=== PATIENT | male | born 1945 | race Caucasian/White ===

== ENCOUNTER 2017-05-26 07:01 | Inpatient (IN) | payer OTHER, MEDICARE ==
[~2017-05-26] VITALS: Ht 167.6 cm; Wt 115.0 kg
[2017-05-26 07:20] LABS: BASOPHILS ABSOLUTE AUTO 0.06 K/mm3 (0.00-0.23); BASOPHILS PERCENT AUTO 1 % (0-2); EOSINOPHILS ABSOLUTE AUTO 0.44 K/mm3 (0.00-0.68); EOSINOPHILS PERCENT AUTO 5 % (0-6); Hematocrit 40.3 % (37.0-53.0); Hemoglobin 13.2 g/dL (13.5-17.5); IMMATURE GRAN ABSOLUTE AUTO 0.02 K/mm3 (0.00-0.10); IMMATURE GRAN PERCENT AUTO 0 % (0-1); LYMPHOCYTES ABSOLUTE AUTO 2.59 K/mm3 (0.84-5.20); LYMPHOCYTES PERCENT AUTO 32 % (21-46); MONOCYTES ABSOLUTE AUTO 0.57 K/mm3 (0.16-1.47); MONOCYTES PERCENT AUTO 7 % (4-13); Mean Corpuscular HGB 28.4 pg (26.0-34.0); Mean Corpuscular HGB Conc 32.8 g/dL (31.5-36.5); Mean Corpuscular Volume 87 fL (80-100); Mean Platelet Volume 10.2 fL (9.1-12.4); NEUTROPHILS ABSOLUTE AUTO 4.46 K/mm3 (1.96-9.15); NEUTROPHILS PERCENT AUTO 55 % (41-73); Platelet Count 279 K/mm3 (150-400); RDW Coefficient Variation 12.6 % (11.7-14.2); RDW Standard Deviation 39.8 fL (35.1-46.3); Red Blood Cell Count 4.65 M/mm3 (4.30-5.90); White Blood Cell Count 8.14 K/mm3 (4.00-11.30)
[2017-05-26 07:42] LABS: Alanine Aminotransfer (ALT/SGP 33 U/L (12-78); Albumin, Blood 3.4 g/dL (3.4-5.0); Albumin/Globulin Ratio 0.9 (0.8-1.8); Alk Phos 89 U/L (50-136); Anion Gap 6 mmol/L (6-16); Aspartate Aminotrans (AST/SGOT 19 U/L (12-37); Bilirubin, Total 0.2 mg/dL (0.1-1.0); Blood Urea Nitrogen 24 mg/dL (8-24); Bun/Creatinine Ratio 30.5 (12.0-20.0); CO2, Blood 28 mmol/L (21-32); Calcium, Blood 8.6 mg/dL (8.5-10.1); Chloride, Blood 105 mmol/L (98-108); Creatinine, Blood 0.79 mg/dL (0.60-1.20); Ethanol (Alcohol), Blood, Med <3 mg/dL; Globulin, Blood 3.9 g/dL (2.2-4.0); Glomerular Filtration Rate >60 (60-); Glucose, Blood 264 mg/dL (70-99); Potassium, Blood 4.5 mmol/L (3.5-5.5); Sodium, Blood 139 mmol/L (136-145); Total Protein, Blood 7.3 g/dL (6.4-8.2); Troponin I <0.015 ng/mL (0.000-0.040)
[2017-05-26 07:48] LABS: PCO2 Venous 46.2 mmHg (38-42); PO2 Venous 116 mmHg (38-42); pH Blood Venous 7.36 (7.34-7.37)
[2017-05-26 07:49] LABS: Base Excess Venous 0.8 mmol/L; Bicarbonate Venous 24.7 mmol/L (24.0-30.0)
[2017-05-26 07:50] LABS: Calcium, Ionized (POC) 1.18 mmol/L (1.10-1.46); Chloride (POC) 103 mmol/L (98-108); Creatinine (POC) 0.8 mg/dL (0.8-1.3); Glucose (ISTAT POC) 272 mg/dL (70-99); Hemoglobin (POC) 13.9 g/dL (13.5-17.5); Potassium (POC) 4.8 mmol/L (3.5-5.5); Sodium (POC) 140 mmol/L (135-148); Total CO2 (POC) 26 mmol/L (21-32)
[2017-05-26] MEDS ORDERED: ALBU90OI6 (07:59)
[2017-05-26] MEDS ORDERED: GABA300 PO (07:59)
[2017-05-26] MEDS ORDERED: HYDCHL12.5 PO (07:59)
[2017-05-26] MEDS ORDERED: LOSA50 PO (08:00)
[2017-05-26] MEDS ORDERED: Synthroid25 MCG PO (08:00)
[2017-05-26] MEDS ORDERED: SILD50TA PO (08:01)
[2017-05-26] MEDS ORDERED: ARTIFICIAL TEA3.5 GM BOTHEYES (13:49)
[2017-05-26] MEDS ORDERED: Cayenne450 MG PO (13:50)
== END 2017-05-27 19:30 | disposition short-term general hospital (02) | DRG 64 ==
LOC: ER 07:01 → PCU 09:53 → ERHOLD 09:53 → PCU 12:14 → MEDS 05-27 16:13
PROVIDERS: Emergency Medicine
DX: I63.9 Cerebral infarction, unspecified (principal); G93.41 Metabolic encephalopathy; E11.40 Type 2 diabetes mellitus with diabetic neuropathy, unspecified; E11.65 Type 2 diabetes mellitus with hyperglycemia; E78.5 Hyperlipidemia, unspecified; I10 Essential (primary) hypertension; I25.2 Old myocardial infarction; Z91.14 Patient's other noncompliance with medication regimen; Z87.891 Personal history of nicotine dependence; R47.81 Slurred speech; R29.810 Facial weakness; Z79.84 Long term (current) use of oral hypoglycemic drugs
CPT/HCPCS: 36415; 70450; 71045; 71260; 74176; 80047; 80053; 82140; 82803; 83690; 83880; 84145; 84443; 84484; 85014; 85025; 92610; 93005; 93010; 93306; 93880; 96374; 97162; 97166; 97167; 97530; 99285; C1751; G0008; G0480; G8978; G8979; G8987; G8988; G8996; G8997; G8998; J0456; J0696; J1650; J2405; J2765; J7030; J7050; Q2038; Q9967